=== PATIENT | female | born 1995 | race Caucasian/White ===

== ENCOUNTER 2024-06-24 08:54 | Emergency (ER) | payer OTHER ==
[~2024-06-24] VITALS: Ht 165.1 cm; Wt 82.0 kg
[2024-06-24 09:11] VITALS: O2SAT 98
[2024-06-24 09:53] LABS: CHLORIDE 104 mEq/L (98-107); POTASSIUM 3.3 mEq/L (3.5-5.1); SODIUM 137 mEq/L (136-145)
[2024-06-24 09:54] LABS: CALCIUM 9.6 mg/dL (8.7-10.4); CARBON DIOXIDE 23 mEq/L (21-32)
[2024-06-24 09:59] LABS: CREATININE 0.9 mg/dL (0.6-1.0); GLUCOSE 107 mg/dL (70-105); UREA NITROGEN BLOOD 8 mg/dL (9-23)
[2024-06-24 10:08] LABS: BASOPHILS % 0.3 % (0.0-2.0); HEMATOCRIT. 32.5 % (36.0-48.0); HEMOGLOBIN. 10.1 g/dL (12.0-16.0); LYMPHOCYTES % 8.3 % (20.0-50.0); MEAN CORPUSCULAR HEMOGLOBIN 21.3 pg (28.0-32.0); MEAN CORPUSCULAR HGB CONC 31.1 g/dL (31.0-37.0); MEAN CORPUSCULAR VOLUME 68.5 fL (81.0-99.0); MEAN PLATELET VOLUME 8.2 fl (7.4-10.4); MONOCYTES % 7.9 % (2.0-8.0); NEUTROPHILS % 83.5 % (40.0-76.0); PLATELET 315 x1000/uL (130-400); RED BLOOD CELL COUNT 4.74 mill/uL (4.2-5.4); RED CELL DISTRIBUTION WIDTH 15.3 % (11.6-14.6); WHITE BLOOD COUNT 9.3 x1000/uL (4.5-11.0)
[2024-06-24 10:13] LABS: ADD RBC MORPHOLOGY YES; DIFFERENTIAL COMMENT 1
[2024-06-24] MEDS: ACETAMINOPHEN 325MG TABLET PO ONE (12:15)
[2024-06-24 13:26] VITALS: BP 122/78; PULSE 100; RESP 18; TEMP 37.11408; O2SAT 98
[2024-06-24] MEDS ORDERED: PSEU120T56 MT (13:32)
[2024-06-24 13:43] LABS: HCG SCREEN NEGATIVE
[2024-06-24 14:01] LABS: TROPONIN I HIGH SENSITIVITY < 4 ng/L (3.0-34)
[2024-06-24 17:15] LABS: OVALOCYTES 1+; PLATELET ESTIMATE NORMAL
[2024-06-24 17:16] LABS: MICROCYTOSIS 2+
== END 2024-06-24 14:35 | disposition home or self-care (01) ==
LOC: ER 08:54
DX: B34.9 Viral infection, unspecified (principal); Z88.0 Allergy status to penicillin; Z98.890 Other specified postprocedural states
CPT/HCPCS: 36415; 71045; 80048; 84484; 84703; 85025; 93005; 99285